=== PATIENT | female | born 1985 | race Caucasian/White ===

== ENCOUNTER 2016-12-17 20:44 | Observation (INO) | payer BC ==
[2016-12-17] MEDS ORDERED: NS 2,000 ML IV ONE (21:28)
[2016-12-17] MEDS ORDERED: KETOROLAC 30 MG/1 ML SDV IVP ONE (21:30)
[2016-12-17] MEDS ORDERED: ONDANSETRON 4 MG/2 ML VIAL IVP PRN (21:44)
[2016-12-17] MEDS ORDERED: ACETAMINOPHEN 325 MG TAB PO PRN (21:45)
[2016-12-17 21:52] LABS: ANION GAP 8 mEq/L (8-16); CALCIUM 8.7 mg/dL (8.5-10.4); CARBON DIOXIDE 25 mEq/l (22-31); CHLORIDE 100 mEq/L (97-110); CREATININE 0.7 mg/dL (0.6-1.0); GLOMERULAR FILTRATION RATE > 60; GLUCOSE 100 mg/dL (70-100); POTASSIUM 4.2 mEq/L (3.5-5.2); SODIUM 133 mEq/L (134-144)
[2016-12-17] MEDS ORDERED: ALBUTEROL 200 PUFFS/18 GM MDI IH PRN (21:57)
[2016-12-17] MEDS ORDERED: IOPAMIDOL (ISOVUE 370) 100 ML BTL IV ONE (22:00)
[2016-12-17] MEDS ORDERED: D5W 1/2 NS W/ 20 KCl/L 1,000 ML IV SCH (22:00)
[2016-12-17 22:17] LABS: % IMMATURE GRANULYOCYTES 0.5 % (0.0-1.1); ABSOLUTE IMMATURE GRANULOCYTES 0.07 10^3/uL (0.00-0.10); ADD DIFF? NO; ADD MORPH? YES; ADD SCAN? NO; ATYPICAL LYMPHOCYTE FLAG 20 (0-99); FRAGMENT RBC FLAG 0 (0-99); HEMATOCRIT 19.7 % (38.0-47.0); LEFT SHIFT FLG 0 (0-99); LIPEMIA HEMOLYSIS FLAG 80 (0-99); MEAN CELL HEMOGLOBIN 28.7 pg (27.9-34.1); MEAN CELL HEMOGLOBIN CONCENTR. 32.5 g/dL (32.4-36.7); MEAN CELL VOLUME 88.3 fL (81.5-99.8); MEAN PLATELET VOLUME 10.7 fL (8.7-11.7); PLATELET CLUMPS FLAG 0 (0-99); PLATELET COUNT 174 10^3/uL (150-400); RED BLOOD CELL COUNT 2.23 10^6/uL (4.18-5.33); RED CELL DISTRIBUTION WIDTH 13.6 % (11.5-15.2)
[2016-12-17 22:27] LABS: HEMOGLOBIN 6.4 g/dL (12.6-16.3)
[2016-12-17 22:48] LABS: HYPOCHROMIA 2+; MICROCYTES 1+; POLYCHROMASIA 1+
[2016-12-17 22:49] LABS: PLATELET ESTIMATE ADEQUATE (ADEQ)
[2016-12-17 22:50] LABS: ROULEAUX PRESENT
[2016-12-17] MEDS ORDERED: FUROSEMIDE 20 MG/2 ML VIAL IVP ONE (23:09)
[2016-12-17] MEDS ORDERED: FUROSEMIDE 20 MG/2 ML VIAL ONE (23:09)
--- NOTE | 2016-12-17 23:49 | GHP ---
[f rep st] PREOP HISTORY AND PHYSICAL DATE OF ADMISSION: 12/17/2016 REASON FOR ADMISSION: Postoperative hypoxia. HISTORY OF PRESENT ILLNESS: 31-year-old healthy female status post laparoscopic ventral herniorrhaphy yesterday morning. Postoperative course was notable for significant hemodynamic lability, with wide swings in pulse and blood pressure. She received approximately 5 L of fluid throughout the course of the day. Evening hemoglobin was 9. 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 Her pulse was 90, and blood pressure of 110. Throughout the course of the day, the patient was noted to be increasingly lethargic at home, with continued shallow breathing and delirium. She had taken 10 mg tablets of oxycodone, and a couple of doses of p.o. Ativan at home, per her . In speaking with the patient, she was noted to be completely confused on the telephone. I requested that she come to the emergency room for further assessment. Upon ED arrival, the patient was noted to be severely hypoxic and confused, with a saturation of 68%. This responded rapidly with 2 L of nasal cannula to 90% plus. Her mental status completely cleared. Her complaints at this time were that of minimal abdominal discomfort without chest pain. No significant abdominal pain. No nausea or vomiting. PAST MEDICAL HISTORY: Asthma. PAST SURGICAL HISTORY: Umbilical herniorrhaphy, laparoscopic ventral hernia repair, . MEDICATIONS: Albuterol, oxycodone p.r.n., Ativan p.r.n. ALLERGIES: No known drug allergy. SOCIAL HISTORY: No alcohol or tobacco. She is . REVIEW OF SYSTEMS: Notable for current active respiratory and GI complaints only, otherwise negative 10-point review. PHYSICAL EXAMINATION: VITAL SIGNS: Temperature of 37, blood pressure 110/80, pulse 130, respirations 30s. O2 saturation 68% initially on room air, currently 92% on 2 L nasal cannula. GENERAL APPEARANCE: The patient is alert, appropriate, comfortable at present time. EYES: Anicteric. NECK: No cervical lymphadenopathy. HEART: Regular, tachycardic. LUNGS: Severely diminished bilaterally, with poor ventilation. ABDOMEN: Soft, appropriately distended. Notable right midabdominal wall hematoma. Incisions otherwise clean without erythema. No rebound, no guarding. EXTREMITIES: Without edema. NEUROLOGIC: Alert and appropriate x3. LABORATORY DATA: Hemoglobin 6.4-7.8, white count 13, platelets of 174. Electrolytes within reference range. CT chest images reviewed on PACS, and directly with on-call radiologist. No evidence of pulmonary embolism. Diminished bilateral lung volumes, with significant bilateral lower lobe compressive atelectasis, and evidence of fluid overload. No intra-abdominal free air noted. No subdiaphragmatic fluid noted. IMPRESSION: 1. Postoperative hypoventilation/hypoxia with resolved delirium secondary to above. 2. Radiographic fluid overload. 3. Postoperative anemia, secondary to surgical site bleeding. The patient clinically is without evidence of active bleed, rather probable dilution in face of her prior bleeding sequelae. PLAN: The patient is being admitted for further evaluation and management to include serial hemoglobins, diuretic therapy administration, and aggressive pulmonary toilet measures. Potential role for a packed cell transfusion was discussed with the patient and . Would hold off at this point in time. I have low clinical suspicion for a bowel injury or other intra-abdominal catastrophe. Further plans pending clinical course /[id number]/MODL MTDD
[2016-12-18] MEDS: KETOROLAC 15 MG/1 ML SDV IVP SCH ×5 (01:15→23:51)
[2016-12-18] MEDS ORDERED: BUPIVACAINE/EPI 0.5% 30 ML SDV ONE (03:17)
--- NOTE | 2016-12-18 03:17 | PDANEPAE ---
ANE History of Present Illness Bleeding S/P ventral hernia repair 12/16, HCT dropping. ANE Past Medical History - Pulmonary History Hx Asthma/Reactive Airway Disease: Yes Hx Oxygen in Use at Home: No - Endocrine History Hx Diabetes: No - Chronic Pain History Chronic Pain: No ANE Review of Systems - Systems Respiratory: Reports: other (Admitted with anemia and hypoxia with confusion.) ANE Patient History - Allergies Allergies/Adverse Reactions: No Known Allergies Allergy (Unverified 12/17/16 20:54) - Home Medications Home Medications: Albuterol [Proventil Inhaler HFA (*)] 2 puffs IH Q4 PRN 12/17/16 [Last Taken Unknown] FLUoxetine [Prozac 10 MG (*)] 10 mg PO HS 12/17/16 [Last Taken 12/14/16] oxyCODONE IR [Oxycodone Ir (*)] 5 - 15 mg PO Q4-6PRN PRN 12/17/16 [Last Taken 17:00 10MG] - Smoking Hx Smoking Status: Never smoked ANE Labs/Vital Signs - Labs Result Diagrams: 12/18/16 02:00 12/17/16 21:20 - Vital Signs Blood Pressure: 120/72 Heart Rate: 123 Respiratory Rate: 17 O2 Sat (%): 96 Height: 160.02 cm Weight: 79.3 kg ANE Physical Exam - Airway Mallampati Score: Class 2 Mouth exam: normal dental/mouth exam - Pulmonary Pulmonary: no respiratory distress - Cardiovascular Cardiovascular: tachycardia - ASA Status ASA Status: III, E ANE Anesthesia Plan Anesthesia Plan: general endotracheal anesthesia
[2016-12-18] MEDS ORDERED: PROPOFOL 200 MG/20 ML VIAL ONE (03:29)
[2016-12-18] MEDS ORDERED: fentaNYL 100 MCG/2 ML INJ ONE (03:29)
[2016-12-18] MEDS ORDERED: DEXAMETHASONE 4 MG/ML VIAL ONE ×2 (03:30)
[2016-12-18] MEDS ORDERED: ROCURONIUM 50 MG/5 ML VIAL ONE (03:30)
[2016-12-18] MEDS ORDERED: LIDOCAINE 2% 5 ML SDV ONE (03:30)
[2016-12-18] MEDS ORDERED: ONDANSETRON 4 MG/2 ML VIAL ONE ×2 (03:30)
[2016-12-18] MEDS ORDERED: FUROSEMIDE 20 MG/2 ML VIAL ONE (03:46)
[2016-12-18] MEDS ORDERED: SUGAMMADEX SODIUM 200 MG/2 ML VIAL IVP ONE (03:46)
[2016-12-18] MEDS ORDERED: ONDANSETRON 4 MG/2 ML VIAL IVP PRN (04:13)
[2016-12-18] MEDS ORDERED: HYDROmorphONE/DILAUDID 1 MG/ML SYR IVP PRN (04:13)
[2016-12-18] MEDS ORDERED: ALBUTEROL 3 ML DEYVIAL IH PRN (04:13)
[2016-12-18] MEDS ORDERED: PROMETHAZINE HCL 25 MG/ML INJ IVP PRN (04:13)
[2016-12-18] MEDS ORDERED: NALOXONE HCL 0.4 MG/ML INJ IVP PRN (04:13)
[2016-12-18] MEDS ORDERED: fentaNYL 100 MCG/2 ML INJ IVP PRN (04:13)
--- NOTE | 2016-12-18 04:53 | POSTOPPROG ---
Post Op Note Date of Operation: 12/18/16 Surgeon: Darvin Zamora Anesthesiologist: Louise Anesthesia: GET(General Endotracheal) Pre-op Diagnosis: Postop anemia, hemoperitoneum Post-op Diagnosis: Same Indication: Declining hemoglobin Procedure: Diagnostic Laparoscopy with evacuation of hematoma Findings: 600cc clotted blood. No active bleeding. Inf/Abcess present in the surg proc area at time of surgery?: No EBL: Minimal (No active bleeding/minimal EBL. 600cc all old blood.) Complications: no immediate Specimen(s): none
--- NOTE | 2016-12-18 05:48 | POSTANESTH ---
Post Anesthetic Evaluation Cardiovascular Status: Similar to Pre-Op Cond Respiratory Status: Similar to Pre-op Cond. Level of Consciousness/Mental Status: Can Participate in Eval, Mildly Sleepy, Arousable Pain Control: Adequate, Prn Tx Ordered Nausea/Vomiting Control: Adequate, Prn Tx Ordered Complications Possibly Related to Anesthesia: None Noted
[2016-12-18] MEDS ORDERED: FUROSEMIDE 20 MG/2 ML VIAL IVP ONE ×2 (06:00→07:42)
[2016-12-18 07:02] LABS: HEMATOCRIT 18.8 % (38.0-47.0); MEAN CELL HEMOGLOBIN 29.6 pg (27.9-34.1); MEAN CELL HEMOGLOBIN CONCENTR. 33.5 g/dL (32.4-36.7); MEAN CELL VOLUME 88.3 fL (81.5-99.8); RED BLOOD CELL COUNT 2.13 10^6/uL (4.18-5.33); RED CELL DISTRIBUTION WIDTH 13.8 % (11.5-15.2)
[2016-12-18 07:03] LABS: HEMOGLOBIN 6.3 g/dL (12.6-16.3)
[2016-12-18 07:16] LABS: ANION GAP 6 mEq/L (8-16); CALCIUM 7.8 mg/dL (8.5-10.4); CARBON DIOXIDE 26 mEq/l (22-31); CHLORIDE 103 mEq/L (97-110); CREATININE 0.6 mg/dL (0.6-1.0); GLOMERULAR FILTRATION RATE > 60; GLUCOSE 119 mg/dL (70-100); SODIUM 135 mEq/L (134-144)
--- NOTE | 2016-12-18 07:44 | GOP ---
[f rep st] OPERATIVE REPORT DATE OF OPERATION: 12/18/2016 SURGEON: Darvin Zamora MD ANESTHESIA: General. ANESTHESIOLOGIST: Rey Gil MD PREOPERATIVE DIAGNOSIS: Hemoperitoneum. POSTOPERATIVE DIAGNOSIS: Hemoperitoneum. PROCEDURE PERFORMED: Diagnostic laparoscopy with evacuation of hemoperitoneum. FINDINGS: 600 cc of old clotted blood. No active bleeding. INDICATIONS: The patient is a 31-year-old female, status post laparoscopic ventral hernia. Yesterd ay morning, the patient was readmitted with severe hypoxia, hypoventilation, and anemia with a hemog lobin of 6.8. With diuretic therapy, her hemoglobin continued to decline to 6.1. She was taken to the operating room this morning for a laparoscopy to exclude an active source of bleeding. DESCRIPTION OF PROCEDURE: General anesthesia was induced. The abdomen was pre-injected with 0.5% M arcaine with epinephrine. A Veress needle was placed through the left lower quadrant prior trocar s ite. This was followed by 3 additional 5 mm port placements. The abdomen was insufflated to 15 mmH g. Abdominal exploration disclosed a less than expected quantity of old clotted blood, in total mariano roximately 600 cc. No active bleeding was noted at any site. The small abdominal wall hematoma was noted to be nonexpanding within the right mid abdomen. The blood was all evacuated. Visceral surf aces all appeared normal. The mesh was nicely apposed to the abdominal wall. Trocars were removed under direct visualization. The wounds were closed with Monocryl suture by Dermabond. The patient was returned to the step-down unit, extubated and in satisfactory condition. /[id number]/MODL
--- NOTE | 2016-12-18 07:49 | SOAPPROG ---
SOAP Progress Note Assessment/Plan: Assessment:s/p dx lap for progressive postop anemia - no fresh bleeding sites identified. less than anticipated clotted blood present for degree of drop in hemoglobin. patient feeling good postop. min pain. no nausea. breathing better with diuresis. bp 100's. p 120's. comfortable. abd soft, unchanged abd wall ecchymosis. hb 6.3. lytes normal. no further change in blood counts - continued supportive care for now. one final dose of lasix. plan to remove cath later. increase activity as able. diet when hungry. repeat labs this evening. do not recommend PRBC at this time in this otherwise healthy young woman. care plan reviewed with patient and nursing staff. Plan: 12/18/16 07:45 Objective: Vital Signs Temp Pulse Resp BP Pulse Ox 37.3 C 114 H 25 H 103/68 95 12/18/16 04:45 12/18/16 06:45 12/18/16 06:45 12/18/16 06:45 12/18/16 06:45 Laboratory Results 12/18/16 06:55 12/18/16 06:55 12/17/16 12/18/16 12/19/16 05:59 05:59 05:59 Intake Total 2118 Output Total 1875 Balance 243 ICD10 Worksheet Patient Problems: Problems Problem Status Onset Anemia Acute Hypoxia Acute Post-op bleeding Acute - ICD10 Problem Qualifiers (1) Hypoxia (2) Anemia Qualifiers: Anemia type: A Iron deficiency anemia type: I Vitamin B12 deficiency anemia type: V Folate deficiency anemia type: F Bone marrow failure anemia type: B Hemolytic anemia type: H Other causes of anemia: O Chronic kidney disease stage: C (3) Post-op bleeding Qualifiers: Surgical complication system/body Area: S Procedure type: P Laterality: L
[2016-12-18] MEDS: HYDROCODONE/APAP 5/325 TAB PO PRN ×3 (08:13→18:18)
[2016-12-18] MEDS ORDERED: FLUoxetine 10 MG CAP PO SCH (21:00)
[2016-12-19 00:09] VITALS: TEMP 98.3
[2016-12-19] MEDS: KETOROLAC 15 MG/1 ML SDV IVP SCH ×2 (05:16→11:50)
[2016-12-19] MEDS: HYDROCODONE/APAP 5/325 TAB PO PRN ×2 (05:23→12:56)
[2016-12-19 06:07] LABS: HEMOGLOBIN 5.8 g/dL (12.6-16.3)
[2016-12-19 06:08] LABS: HEMATOCRIT 17.9 % (38.0-47.0)
[2016-12-19 06:34] LABS: ANION GAP 5 mEq/L (8-16); CALCIUM 8.3 mg/dL (8.5-10.4); CARBON DIOXIDE 29 mEq/l (22-31); CHLORIDE 103 mEq/L (97-110); CREATININE 0.6 mg/dL (0.6-1.0); GLOMERULAR FILTRATION RATE > 60; GLUCOSE 86 mg/dL (70-100); POTASSIUM 3.4 mEq/L (3.5-5.2); SODIUM 137 mEq/L (134-144)
[2016-12-19] MEDS ORDERED: POTASSIUM CL 20 MEQ TAB PO ONE (07:44)
[2016-12-19 08:03] VITALS: BP 110/82
[2016-12-19] MEDS ORDERED: BISACODYL 10 MG SUPP PR PRN (08:27)
[2016-12-19] MEDS ORDERED: MAGNESIUM HYDROXIDE 30 ML UDCUP PO PRN (08:27)
[2016-12-19] MEDS ORDERED: POLYETHYLENE GLYCOL 3350 17 GM PKT PO PRN (08:27)
[2016-12-19] MEDS ORDERED: LACTULOSE 20 GM/30 ML UDCUP PO PRN (08:27)
[2016-12-19] MEDS ORDERED: SENNOSIDES/DOCUSATE SODIUM TAB PO SCH (09:00)
--- NOTE | 2016-12-19 09:24 | SOAPPROG ---
SOAP Progress Note Assessment/Plan: Assessment: no overnight events. appetite continues to slowly improve. no nausea. min pain. no cp or sob. no lightheadedness. afebrile. bp 100's. p 90's. comfortable. skin color good. abd soft, min dist. incis clean. approp central ecchymosis. k 5.8. k 3.4. clinically doing very well. HD normal with improved heart rate despite change in am Hb - doubt active bleed rather re- equilibration - will repeat later today and add ferritin. suspect underlying chronic anemia given paucity of blood found at surgery and post op counts of 9.5. patient desiring to go home later today if able - may require suppl oxygen. k suppl today am. will dc with po iron. final reccs to follow. care plan reviewed with patient and nursing staff at bedside. Plan: 12/18/16 07:45 12/19/16 09:19 Objective: Vital Signs Temp Pulse Resp BP Pulse Ox 36.8 C 106 H 18 110/82 H 98 12/19/16 00:00 12/19/16 07:58 12/19/16 07:58 12/19/16 07:58 12/19/16 07:58 Laboratory Results 12/19/16 05:55 12/19/16 05:55 12/18/16 12/19/16 12/20/16 05:59 05:59 05:59 Intake Total 2111 930 Output Total 7633 0000 Balance 243 -2327 ICD10 Worksheet Patient Problems: Problems Problem Status Onset Anemia Acute Hypoxia Acute Post-op bleeding Acute - ICD10 Problem Qualifiers (1) Hypoxia (2) Anemia Qualifiers: Anemia type: A Iron deficiency anemia type: I Vitamin B12 deficiency anemia type: V Folate deficiency anemia type: F Bone marrow failure anemia type: B Hemolytic anemia type: H Other causes of anemia: O Chronic kidney disease stage: C (3) Post-op bleeding Qualifiers: Surgical complication system/body Area: S Procedure type: P Laterality: L
[2016-12-19 09:54] VITALS: PULSE 114; RESP 16; O2SAT 97
[2016-12-19 12:02] LABS: HEMATOCRIT 18.9 % (38.0-47.0)
--- NOTE | 2016-12-19 14:37 | SOAPPROG ---
SOAP Progress Note Assessment/Plan: Assessment: Patient seen this afternoon. Ambulated three times today so far. Feeling better, pain controlled. Repeat Hgb 6.0. Patient off O2. Case discussed with Dr. Zamora. Will discharge patient home this afternoon. See orders. Follow up in the office later this week with repeat labs prior to visit. Will discharge on Iron supplement as well. Plan: 12/19/16 14:28 Objective: Vital Signs Temp Pulse Resp BP Pulse Ox 36.8 C 114 H 16 110/82 H 97 12/19/16 00:00 12/19/16 09:47 12/19/16 09:47 12/19/16 07:58 12/19/16 09:47 Laboratory Results 12/19/16 11:59 12/19/16 05:55 12/18/16 12/19/16 12/20/16 05:59 05:59 05:59 Intake Total 1962 450 Output Total 6024 0136 Balance 243 -1670 ICD10 Worksheet Patient Problems: Problems Problem Status Onset Anemia Acute Hypoxia Acute Post-op bleeding Acute
--- NOTE | 2016-12-19 18:43 | GDS ---
[f rep st] DISCHARGE SUMMARY REASON FOR ADMISSION: Postoperative hypoxia. HOSPITAL COURSE: The patient is a 31-year-old healthy female who underwent laparoscopic ventral hernia repair on December 16. Postoperatively she had some hemodynamic lability and received approximately 5 L of fluid throughout her postoperative course. Her evening hemoglobin was 9, and she was discharged home following her surgery on December 17. Later that day upon followup phone call it was found the patient was increasingly lethargic with shallow breathing and some delirium and it was requested that she present to the emergency room here at [facility]. Upon arrival her O2 sat was 68% which rapidly responded to 2 L of nasal cannula and she was admitted for further evaluation. Patient had continued postoperative anemia and underwent diagnostic laparoscopy with evacuation of hematoma. Was found to have 600 cc of clotted blood, but no active bleeding. Since that time she has continued to improve. She was monitored for an additional 48 hours. As of today, a repeat hemoglobin is stable at 6.0. She is now off oxygen and ambulating well. Her pain is controlled. As of this afternoon she is felt to be stable and ready for discharge home. We will plan to see her back in our office later this week with repeat labs of a CBC and a BMP prior to appointment. She will be discharged on iron supplementation as well. Her appointment time was provided. She will be seen on , December 22, at 11 a.m. full written and verbal discharge instructions will be reviewed with the patient, and we will plan to see her back as noted above. /[id number]/MODL MTDD
== END 2016-12-19 15:45 | disposition home or self-care (01) ==
LOC: F2N 23:49
PROVIDERS: ADMIT Surgery; ATTEND Surgery
PROC: 0DCW4ZZ Extirpation of Matter from Peritoneum, Percutaneous Endoscopic Approach (ICD-10-PCS; principal; 2016-12-17)
DX: K66.1 Hemoperitoneum (principal); D64.9 Anemia, unspecified
CPT/HCPCS: 49322; 71275; G0378; 82947-QW; J1100; J1885; J1940; J2405; J2704; J3010; Q9967

== ENCOUNTER 2016-12-26 09:58 | Emergency (ER) | payer BC ==
--- NOTE | 2016-12-26 10:33 | CPEKG ---
Heart Rate: 96 RR Interval: 625 P-R Interval: 136 QRSD Interval: 100 QT Interval: 356 QTC Interval: 450 P [place]: 54 QRS [place]: 12 T Wave [place]: 38 EKG Severity - NORMAL ECG - EKG Impression: SINUS RHYTHM Electronically Signed By: Hiral Patel 26-Dec-2016 15:10:48
--- NOTE | 2016-12-26 10:51 | EDPHY ---
H & P Time Seen by Provider: 12/26/16 10:46 HPI/ROS: CHIEF COMPLAINT: Right-sided chest pain HISTORY OF PRESENT ILLNESS: 31-year-old female s/p recent ventral hernia repair and subsequent hematoma evacuation presents with sharp right-sided chest pain onset this morning. Onset of right-sided chest pain this morning. The pain is moderate and increases with deep inspiration and movement. Alleviated with oxycodone. She underwent a laparoscopic ventral hernia repair on 12/16/2016. She returned to the emergency department on 12/17/16 with abd pain, tachycardia and hypoxia. She underwent a diagnostic laparoscopy that revealed an intra-abdominal hematoma, 600 mL. She was discharged home the following day with a hemoglobin of 6.0. She denies fever or shortness of breath. She denies personal history of blood clots. REVIEW OF SYSTEMS: Constitutional: No fever, no chills Eyes: No visual changes ENT: No sore throat Respiratory: No cough, no shortness of breath Cardiac: Right-sided chest pain Genitourinary: no dysuria Musculoskeletal: No leg pain or swelling Skin: No rash Neurological: No headache, no numbness, no weakness Psychiatric: No depression Past Medical/Surgical History: Laparoscopic ventral hernia repair 12/16/2016, see HPI Depression Social History: at bedside. Nonsmoker. Smoking Status: Never smoked Physical Exam: General Appearance: Alert, pleasant, pale Eyes: Pupils equal and round, conjunctival pallor ENT, Mouth: Mucous membranes moist Neck: Normal inspection Respiratory: Decreased breath sounds at right base Cardiovascular: Regular rate and rhythm Gastrointestinal: Multiple areas of ecchymosis surrounding well-healing surgical incisions without erythema, mild diffuse tenderness Neurological: A&O, nonfocal, normal gait Skin: Warm and dry Extremities: Nontender, no pedal edema, negative Homans sign Psychiatric: Mood and affect normal Constitutional: Initial Vital Signs Temperature (C) 36.5 C 12/26/16 10:12 Heart Rate 107 H 12/26/16 10:12 Respiratory Rate 20 12/26/16 10:12 Blood Pressure 112/75 12/26/16 10:12 O2 Sat (%) 95 12/26/16 10:12 O2 Delivery Mode Room Air Allergies/Adverse Reactions: No Known Allergies Allergy (Verified 12/26/16 10:11) Home Medications: Medication Instructions Recorded Albuterol [Proventil Inhaler HFA 2 puffs IH Q4 PRN 12/17/16 (*)] FLUoxetine [Prozac 10 MG (*)] 10 mg PO HS 12/17/16 oxyCODONE IR [Oxycodone Ir (*)] 5 - 15 mg PO Q4-6PRN PRN 12/17/16 Acetaminophen [Tylenol 325mg (*)] 650 mg PO Q4HRS PRN #0 tab 12/19/16 Ferrous Sulfate [Feosol] 325 mg PO TID #90 tablet 12/19/16 LORAZEPAM 12/26/16 Medical Decision Making - Diagnostics Imaging Results: Imaging Impressions Chest/Thorax CTA 12/26/16 11:05 Impression: 1. No evidence of thrombopulmonary embolic disease. 2. Significantly improved bibasilar atelectasis and trace bilateral pleural effusions since December 17, 2016. Findings discussed with Emergency Department physician, Dr. Hiral Patel on December 26, 2016 at 1243 hours. Imaging: Discussed imaging studies w/ glaze wiper Radiologist ED Course/Re-evaluation: Clinical presentation concerning for pulmonary embolism. I do not suspect an intraabdominal etiology for her discomfort. The surgical wounds are well healing and the abdominal exam is what I would expect in the postoperative period. CT pulmonary angiogram ordered. 12:[address] Almonte, radiologist. CTA chest negative for pulmonary embolism. I discussed the CT results with the patient. She has bilateral atelectasis and was encouraged to use her incentive spirometer 4 times daily. She will follow up with her surgeon, Dr. Zamora, this week. Return precautions discussed. The patient is comfortable with this plan. Differential Diagnosis: The differential diagnosis for the patient's chest pain included but was not limited to pulmonary embolus, chest wall pain, pleural inflammation, pulmonary infectious causes, and myocardial ischemia,. - Data Points Laboratory Results: Laboratory Results 12/26/16 10:40 12/26/16 10:40 12/26/16 12/26/16 12/26/16 11:05 10:40 10:40 WBC 10.50 10^3/uL H 10^3/uL (3.80-9.50) RBC 3.00 10^6/uL L 10^6/uL (4.18-5.33) Hgb 8.5 g/dL L g/dL (12.6-16.3) POC Hgb 8.5 gm/dL L gm/dL (12.6-16.3) Hct 26.8 % L % (38.0-47.0) POC Hct 25 % L % (38-47) MCV 89.3 fL fL (81.5-99.8) MCH 28.3 pg pg (27.9-34.1) MCHC 31.7 g/dL L g/dL (32.4-36.7) RDW 14.6 % % (11.5-15.2) Plt Count 387 10^3/uL 10^3/uL (150-400) MPV 9.7 fL fL (8.7-11.7) Neut % (Auto) Not Reported Lymph % (Auto) Not Reported [place] % (Auto) Not Reported Eos % (Auto) Not Reported Baso % (Auto) Not Reported Nucleat RBC Rel Count 0.2 % % (0.0-0.2) Absolute Neuts (auto) Not Reported Absolute Lymphs (auto) Not Reported Absolute Monos (auto) Not Reported Absolute Eos (auto) Not Reported Absolute Basos (auto) Not Reported Absolute Nucleated RBC 0.02 10^3/uL H 10^3/uL (0-0.01) Immature Gran % Not Reported Seg Neutrophils % 43 % % Band Neutrophils % 4 % % Lymphocytes % 33 % % Monocytes % 10 % % Eosinophils % 10 % % Immature Gran # Not Reported Absolute Seg Neuts 4.52 10^/uL 10^/uL (1.70-6.50) Absolute Band Neuts 0.42 10^3/uL 10^3/uL (0.00-0.70) Absolute Lymphocytes 3.47 10^3/uL H 10^3/uL (1.00-3.00) Absolute Monocytes 1.05 10^3/uL H 10^3/uL (0.30-0.80) Absolute Eosinophils 1.05 10^3/uL H 10^3/uL (0.03-0.40) Platelet Estimate ADEQUATE (ADEQ) Polychromasia 1+ H Hypochromasia 1+ H Oval Macrocytes 1+ H POC Sodium 140 mEq/L mEq/L (134-144) Sodium 140 mEq/L mEq/L (134-144) POC Potassium 3.9 mEq/L mEq/L (3.3-5.0) Potassium 5.0 mEq/L mEq/L (3.5-5.2) POC Chloride 101 mEq/L mEq/L (97-110) Chloride 104 mEq/L mEq/L (97-110) Carbon Dioxide 25 mEq/l mEq/l (22-31) Anion Gap 11 mEq/L mEq/L (8-16) POC BUN 11 mg/dL mg/dL (7-23) BUN 13 mg/dL mg/dL (7-23) Creatinine 0.6 mg/dL mg/dL (0.6-1.0) POC Creatinine 0.6 mg/dL mg/dL (0.6-1.0) Estimated GFR > 60 Glucose 92 mg/dL mg/dL (70-100) POC Glucose 87 mg/dL mg/dL (70-100) Calcium 9.5 mg/dL mg/dL (8.5-10.4) Point of Care Test Results: 12/26/16 11:05 POC Sodium 140 POC Potassium 3.9 POC Chloride 101 POC BUN 11 POC Creatinine 0.6 POC Glucose 87 Departure - Departure Disposition: Home, Routine, Self-Care Clinical Impression: Chest pain Qualifiers: Chest pain type: other chest pain Qualified Code(s): R07.89 - Other chest pain Condition: Good Instructions: Chest Pain (ED) Additional Instructions: 1. Continue to take your oxycodone as prescribed by Dr. Zamora as needed for pain. 2. Follow up with Dr. Zamora in the office this week. 3. Return to the emergency department for worsening pain, shortness of breath, fainting, fever, vomiting, or other worsening of condition. Referrals: Jono Paul MD [Primary Care Provider] - As per Instructions Darvin Zamora MD [Medical Doctor] - As per Instructions Report Scribed for: Hiral Patel Report Scribed by: Kisha Chen Date of Report: 12/26/16 Time of Report: 11:19 Physician Review and Approval Statement: 12/26/16 11:19 Portions of this note were transcribed by a medical administrative technician. I personally performed a history, physical exam, medical decision making, and confirmed accuracy of information the transcribed note.
[2016-12-26 11:17] LABS: ABSOLUTE NRBC COUNT 0.02 10^3/uL (0-0.01); ADD DIFF? YES; ADD MORPH? NO; ADD SCAN? NO; ATYPICAL LYMPHOCYTE FLAG 60 (0-99); FRAGMENT RBC FLAG 0 (0-99); HEMATOCRIT 26.8 % (38.0-47.0); HEMOGLOBIN 8.5 g/dL (12.6-16.3); LEFT SHIFT FLG 20 (0-99); LIPEMIA HEMOLYSIS FLAG 80 (0-99); MEAN CELL HEMOGLOBIN 28.3 pg (27.9-34.1); MEAN CELL HEMOGLOBIN CONCENTR. 31.7 g/dL (32.4-36.7); MEAN CELL VOLUME 89.3 fL (81.5-99.8); MEAN PLATELET VOLUME 9.7 fL (8.7-11.7); NRBC-AUTO% 0.2 % (0.0-0.2); PLATELET CLUMPS FLAG 0 (0-99); PLATELET COUNT 387 10^3/uL (150-400); RED CELL DISTRIBUTION WIDTH 14.6 % (11.5-15.2)
[2016-12-26 11:19] LABS: ANION GAP 11 mEq/L (8-16); CALCIUM 9.5 mg/dL (8.5-10.4); CARBON DIOXIDE 25 mEq/l (22-31); CHLORIDE 104 mEq/L (97-110); CREATININE 0.6 mg/dL (0.6-1.0); GLOMERULAR FILTRATION RATE > 60; GLUCOSE 92 mg/dL (70-100); SODIUM 140 mEq/L (134-144)
[2016-12-26] MEDS ORDERED: IOPAMIDOL (ISOVUE 370) 100 ML BTL IV ONE (11:43)
[2016-12-26 11:53] LABS: PLATELET ESTIMATE ADEQUATE (ADEQ)
[2016-12-26 11:54] LABS: HYPOCHROMIA 1+; MACROCYTES 1+; POLYCHROMASIA 1+
[2016-12-26 13:11] VITALS: BP 115/75; PULSE 97; RESP 16; TEMP 97.3; O2SAT 97
== END 2016-12-26 13:10 | disposition home or self-care (01) ==
DX: R07.89 Other chest pain (principal)
CPT/HCPCS: 82947-QW; Q9967